=== PATIENT | female | born 1945 | race Caucasian/White ===

== ENCOUNTER → 2016-09-17 | Outpatient (CLI) | payer OTHER, BC ==
[~2016-09-17] MED LIST: ANSHCCR PR; CHOL400C7 PO; CLOT1CRE47; CLOTCRE33 TOP; DEXA0.5E3 PO; ELCCR115; LEVO112T4 PO; LVTUNK PO; PROP0.6D OPB; ZNTT/150 PO; [UNRECOGNIZED DRUG - CODE]; [UNRECOGNIZED DRUG - CODE]; [UNRECOGNIZED DRUG - CODE] OTB; [UNRECOGNIZED DRUG - CODE] PO; vit d PO
== END | disposition home or self-care (01) ==
LOC: C.PAPS 10:18
PROVIDERS: ATTEND Obstetrics & Gynecology
DX: Z01.419 Encounter for gynecological examination (general) (routine) without abnormal findings (principal)

== ENCOUNTER → 2016-11-12 | Outpatient (CLI) | payer OTHER, BC ==
[2016-11-12 11:03] LABS: BLOOD UREA NITROGEN 12 mg/dl (7-18); BUN/CREATININE RATIO 15.7 (10-20); CALCIUM 9.1 mg/dl (8.5-10.1); CARBON DIOXIDE 31 mmol/L (21-32); CHLORIDE 107 mmol/L (98-107); CREATININE 0.77 mg/dl (0.60-1.20); GLUCOSE 90 mg/dl (70-99); POTASSIUM 3.8 mmol/L (3.5-5.1); SODIUM 141 mmol/L (136-145)
[2016-11-12 11:14] LABS: CHOLESTEROL 171 mg/dl (0-200); CHOLESTEROL/HDL RATIO 2.8; HDL CHOLESTEROL 62 mg/dl; LDL CHOLESTEROL CALCULATED 96 mg/dl; THYROID STIMULATING HORMONE 0.526 uIu/ml (0.300-4.500); TRIGLYCERIDES 67 mg/dl (0-150); VERY LOW DENSITY LIPOPROT CALC 13 mg/dl
[2016-11-12 11:15] LABS: ESTIMATED AVERAGE GLUCOSE 114 mg/dl; HA1C FLAG Normal (Normal)
--- NOTE | 2016-11-17 12:48 | CODING QUERY MEDICAL NECESSITY ---
SUPPORTING DIAGNOSIS NEEDED A supporting diagnosis is required for the test/procedure performed on this patient in order for us to be reimbursed by the patient's insurance. Please provide a supporting diagnosis for the following test/procedure listed below next to the test name along with your signature. *If there is no additional diagnosis for this patient that would support the following test/procedure please document that below next to the test/procedure. Test(s)/Procedure(s) that require a supporting diagnosis: DOS 11/12 * Hba1c DIAGNOSIS: Provider Signature: Date: Thank you Joanna Tucker Health Information Management Once completed, please kindly fax back to [phone] For questions please call [phone]
== END | disposition home or self-care (01) ==
LOC: C.LAB 08:53
PROVIDERS: ATTEND Family Medicine
DX: E03.9 Hypothyroidism, unspecified (principal); E78.5 Hyperlipidemia, unspecified; R73.03 Prediabetes; E55.9 Vitamin D deficiency, unspecified

== ENCOUNTER → 2016-12-08 | Outpatient (CLI) | payer OTHER, BC ==
[2016-12-08 14:55] LABS: BASO % 0.3 %; BASO ABS # 0.01 K/uL (0-0.2); COMPLETE YES; HEMATOCRIT 41.9 % (37-47); LYMPH % 35.4 %; LYMPH ABS # 1.23 K/uL (1.2-3.4); MEAN CELL VOLUME 90.3 fL (80-100); MEAN CORPUSCULAR HEMOGLOBIN 30.2 pg (25-34); MEAN CORPUSCULAR HGB CONC 33.4 g/dl (32-36); MONO % 11.2 %; NEUT % 51.1 %; PLATELET COUNT 182 K/uL (130-400); RED BLOOD COUNT 4.64 M/uL (4.2-5.4); WHITE BLOOD COUNT 3.47 K/uL (4.8-10.8)
== END ==
LOC: C.LAB 12:20
PROVIDERS: ATTEND Dentist Oral and Maxillofacial Pathology
DX: R59.1 Generalized enlarged lymph nodes (principal)

== ENCOUNTER → 2017-01-12 | Day surgery (SDC) | payer OTHER, BC ==
[2016-12-14 14:08] VITALS: Ht 161.9 cm; Wt 72.7 kg
[~2017-01-12] VITALS: Ht 161.9 cm; Wt 72.7 kg
[~2017-01-12] MED LIST changes: -CLOT1CRE47; -ELCCR115; +GLYCOPYRROLATE INJ 0.2 MG/ML VIAL ONE; +LIDOCAINE HCL 2% 2 ML VIAL (20MG/ML) ONE; -LVTUNK PO; +PROPOFOL IV EMULSION 10 MG/ML 20 ML VIAL IV ONE; +SODIUM CHLORIDE 0.9% 500ML 500 ML IV ONE; -[UNRECOGNIZED DRUG - CODE]; -[UNRECOGNIZED DRUG - CODE]; -[UNRECOGNIZED DRUG - CODE] PO; -vit d PO
--- NOTE | 2017-01-12 09:03 | Endo History and Physical ---
History & Physical Date of Service: Jan 12, 2017. Chief Complaint: History of colon polyps Referring Physician: Dr. Funes History of Present Illness 71 yo CF who presents for colonoscopy secondary to history of colon polyps. Past Surgical History Hx Cardiac Surgery: No Hx Internal Defibrillator: No Hx Pacemaker: No Hx Abdominal Surgery: Yes (D&C) Hx of Implantable Prosthesis: No Hx Post-Op Nausea and Vomiting: Yes Hx Cancer Surgery: Yes (RT BREAST LUMPECTOMY WITH LYMPH NODE DISSECTION) Hx Thoracic Surgery: No Hx Orthopedic: No Hx Urinary Tract Surgery: No Family History None Social History Smoking Status: Former Smoker Hx Substance Use: No Hx Alcohol Use: No Allergies Coded Allergies: Iodinated Contrast Media (Verified Allergy, Severe, HIVES / SOB, 12/14/16) Iodine (Verified Allergy, Severe, HIVES/SOB, 12/14/16) Haitian Cheese (Verified Allergy, Mild, DIARRHEA, 12/14/16) Azithromycin (Verified Allergy, Mild, GASTRIC PROBLEMS, 12/14/16) NUTS (Verified Allergy, Mild, DIARRHEA, 12/14/16) Peanut (Verified Allergy, Mild, DIARRHEA, 12/14/16) Penicillins (Verified Allergy, Mild, HIVES, 12/14/16) KEFLEX IS OKAY TO TAKE PER PATIENT Shellfish (Verified Allergy, Mild, DIARRHEA, 12/14/16) Tetracyclines (Verified Allergy, Mild, HIVES, 12/14/16) Bacitracin (Verified Allergy, Unknown, RASH, 12/14/16) Bisphosphonates (Verified Allergy, Unknown, DIFFICULTY SWALLOWING, 12/14/16 ) Chocolate (Verified Allergy, Unknown, HIVES WITH SOME CHOCOLATE, 12/14/16) Cyproheptadine (Verified Allergy, Unknown, HYPER SENSITIVITY, 12/14/16) Erythromycin (Verified Allergy, Unknown, RASH, 12/14/16) Latex1 -Allergic Contact Dermititis (Verified Allergy, Unknown, HIVES, ) Levofloxacin (Verified Allergy, Unknown, HIVES, 12/14/16) Macrolides (Verified Allergy, Unknown, HIVES, 12/14/16) Neomycin (Verified Allergy, Unknown, RASH, 12/14/16) Polymyxin B (Verified Allergy, Unknown, RASH, 12/14/16) Proton Pump Inhibitors (Verified Allergy, Unknown, GI ISSUES, 12/14/16) [place] (Verified Allergy, Unknown, ITCHING, 12/14/16) Sulfa Drugs (Verified Allergy, Unknown, ITCHING, 12/14/16) Uncoded Allergies: ANTIBIOTICS (Allergy, Unknown, ., 12/14/16) NEEDS CLOTRIMAZOLE 10MG TO REDUCE SYMPTOMS OF ORAL LICHEN PLANUS SEEDS (Allergy, Unknown, SHORTNESS OF BREATH, 12/14/16) SPICES (Allergy, Unknown, SHORTNESS OF BREATH, 12/14/16) Current Medications Reported Home Medications Medications Dose Route/Sig Max Daily Dose Days Date Category Proctosol Hc (Hydrocortisone) 90 Appln/30 Gm Cr 1 Appln [place] BID PRN 12/14/16 Reported Soothe (Propylene Glycol-Glycerin) 1 Bull Bull 1 Drop OPB UD PRN 12/14/16 Reported Vitamin D 400 Iu (Cholecalciferol) 400 Unit Cap 2 Tabs PO QAM 12/14/16 Reported Cortane-B Aqueous (Vbalwuwrt-Om-Gszoxoewzknah Aqu) 1 Bull Bull 1 Drop OTB UD PRN 12/14/16 Reported Lotrisone (Clotrimazole W/ Betamethasone) 1 Cre Cre 1 Appln TOP WK 12/14/16 Reported Dexamethasone 0.5 Mg/5 Ml Elx 1 Tsp PO SWISH AND SPIT DAILY PRN 12/14/16 Reported Zantac (Ranitidine HCl) 150 Mg Tab 150 Mg PO BID-QID 12/14/16 Reported Levothyroxine Sodium 112 Mcg Tab 1 Tab PO HS 12/14/16 Reported Vital Signs Weight (Kilograms): 72.73 Height (Feet): 5 Height (Inches): 3.75 Physical Exam General Appearance: WD/WN, no apparent distress Respiratory/Chest: Auscultation: breath sounds normal Cardiovascular: Heart Auscultation: RRR Abdomen: Bowel Sounds: normal Inspection & Palpation: soft, non-distended, no tenderness, guarding & rebound Assessment and Plan Assessment: 71 yo CF who presents for colonoscopy secondary to history of colon polyps. Plan: Proceed with colonoscopy.
--- NOTE | 2017-01-12 10:00 | GI REPORT ---
Procedure Date: 01/12/2017 9:34 AM Procedure: Colonoscopy Indications: High risk colon cancer surveillance: Personal history of colonic polyps Medicines: Monitored Anesthesia Care Complications: No immediate complications. Estimated Blood Loss: Estimated blood loss: none. Procedure: Pre-Anesthesia Assessment: - Prior to the procedure, a History and Physical was performed, and patient medications and allergies were reviewed. The patient's tolerance of previous anesthesia was also reviewed. The risks and benefits of the procedure and the sedation options and risks were discussed with the patient. All questions were answered, and informed consent was obtained. Prior Anticoagulants: The patient has taken no previous anticoagulant or antiplatelet agents. ASA Grade Assessment: II - A patient with mild systemic disease. After reviewing the risks and benefits, the patient was deemed in satisfactory condition to undergo the procedure. After I obtained informed consent, the scope was passed under direct vision. Throughout the procedure, the patient's blood pressure, pulse, and oxygen saturations were monitored continuously. The scope was introduced through the anus and advanced to the terminal ileum. The colonoscopy was performed without difficulty. The patient tolerated the procedure well. The quality of the bowel preparation was good. The terminal ileum, ileocecal valve, appendiceal orifice, and rectum were photographed. Findings: Multiple small-mouthed diverticula were found in the sigmoid colon. Non-bleeding internal hemorrhoids were found during retroflexion. The hemorrhoids were mild. Impression: - Diverticulosis in the sigmoid colon. - Non-bleeding internal hemorrhoids. - No specimens collected. Recommendation: - Resume previous diet. - Continue present medications. - Repeat colonoscopy in 5 years for surveillance. - Return to primary care physician as previously scheduled. Femi Castillo DO 01/12/2017 9:59:33 AM This report has been signed electronically. Note Initiated On: 01/12/2017 9:34 AM I attest to the content of the Intraoperative Record and orders documented therein, exceptions below
--- NOTE | 2017-01-12 10:02 | Discharge Instructions ---
Endoscopy Patient Instructions Date / Procedure(s) Performed Jan 12, 2017. Colonoscopy Allergy Information Coded Allergies: Iodinated Contrast Media (Verified Allergy, Severe, HIVES / SOB, 12/14/16) Iodine (Verified Allergy, Severe, HIVES/SOB, 12/14/16) [place] Cheese (Verified Allergy, Mild, DIARRHEA, 12/14/16) Azithromycin (Verified Allergy, Mild, GASTRIC PROBLEMS, 12/14/16) NUTS (Verified Allergy, Mild, DIARRHEA, 12/14/16) Peanut (Verified Allergy, Mild, DIARRHEA, 12/14/16) Penicillins (Verified Allergy, Mild, HIVES, 12/14/16) KEFLEX IS OKAY TO TAKE PER PATIENT Shellfish (Verified Allergy, Mild, DIARRHEA, 12/14/16) Tetracyclines (Verified Allergy, Mild, HIVES, 12/14/16) Bacitracin (Verified Allergy, Unknown, RASH, 12/14/16) Bisphosphonates (Verified Allergy, Unknown, DIFFICULTY SWALLOWING, 12/14/16 ) Chocolate (Verified Allergy, Unknown, HIVES WITH SOME CHOCOLATE, 12/14/16) Cyproheptadine (Verified Allergy, Unknown, HYPER SENSITIVITY, 12/14/16) Erythromycin (Verified Allergy, Unknown, RASH, 12/14/16) Latex1 -Allergic Contact Dermititis (Verified Allergy, Unknown, HIVES, ) Levofloxacin (Verified Allergy, Unknown, HIVES, 12/14/16) Macrolides (Verified Allergy, Unknown, HIVES, 12/14/16) Neomycin (Verified Allergy, Unknown, RASH, 12/14/16) Polymyxin B (Verified Allergy, Unknown, RASH, 12/14/16) Proton Pump Inhibitors (Verified Allergy, Unknown, GI ISSUES, 12/14/16) [place] (Verified Allergy, Unknown, ITCHING, 12/14/16) Sulfa Drugs (Verified Allergy, Unknown, ITCHING, 12/14/16) Uncoded Allergies: ANTIBIOTICS (Allergy, Unknown, ., 12/14/16) NEEDS CLOTRIMAZOLE 10MG TO REDUCE SYMPTOMS OF ORAL LICHEN PLANUS SEEDS (Allergy, Unknown, SHORTNESS OF BREATH, 12/14/16) SPICES (Allergy, Unknown, SHORTNESS OF BREATH, 12/14/16) Discharge Date / Findings Jan 12, 2017. Diverticulosis Internal hemorrhoids Medication Instructions OK to resume all medications today as prescribed Reported Home Medications Medications Dose Route/Sig Max Daily Dose Days Date Category Proctosol Hc (Hydrocortisone) 90 Appln/30 Gm Cr 1 Appln [place] BID PRN 12/14/16 Reported Soothe (Propylene Glycol-Glycerin) 1 Bull Bull 1 Drop OPB UD PRN 12/14/16 Reported Vitamin D 400 Iu (Cholecalciferol) 400 Unit Cap 2 Tabs PO QAM 12/14/16 Reported Cortane-B Aqueous (Nuyfgvdmt-Tr-Rszqmpadfwvnb Aqu) 1 Bull Bull 1 Drop OTB UD PRN 12/14/16 Reported Lotrisone (Clotrimazole W/ Betamethasone) 1 Cre Cre 1 Appln TOP WK 12/14/16 Reported Dexamethasone 0.5 Mg/5 Ml Elx 1 Tsp PO SWISH AND SPIT DAILY PRN 12/14/16 Reported Zantac (Ranitidine HCl) 150 Mg Tab 150 Mg PO BID-QID 12/14/16 Reported Levothyroxine Sodium 112 Mcg Tab 1 Tab PO HS 12/14/16 Reported Provider Instructions Activity Restrictions - No exercising or heavy lifting for 24 hours. - Do not drink alcohol the day of the procedure. - Do not drive a car or operate machinery until the day after the procedure. - Do not make any important decisions or sign important papers in 24 hours after the procedure. Following Day: - Return to full activity which may include returning to work/school. Diet Start your diet with liquids and light foods (jello, soup, juice, toast). Then eat your usual diet if not nauseated. Treatment For Common After Affects For mild abdominal pain, bloating, or excessive gas: - Rest - Eat lightly - Lie on right side Follow-Up Information Follow-up with Dr. Frias as scheduled Anesthesia Information What You Should Know You have had a procedure that required some medicine to reduce anxiety and discomfort. This treatment is called moderate sedation. After receiving the treatment, you may be sleepy, but you will be able to breathe on your own. The effects of the treatment may last for several hours. Follow these instructions along with Activity/Diet recommendations noted above: * Do NOT do anything where dizziness or clumsiness would be dangerous. * Rest quietly at home today, then you can be up and about tomorrow. * Have a responsible person stay with you the rest of today. * You may have had an I.V. today. If so, you may take the dressing off later today. Recommendations Call your doctor if: * Trouble breathing * Continuous vomiting for more than 24 hours * Temperature above 101 degrees * Severe abdominal pain or bloating * Pain not relieved by pain medicine ordered * There is increased drainage or redness from any incision * A large amount of rectal bleeding greater than 2-3 tablespoons. (If you had a polyp/s removed or have hemorrhoids, a small amount of blood - from the rectum is to be expected.) * You have any unanswered questions or concerns. IN THE EVENT OF A SERIOUS EMERGENCY, GO TO THE NEAREST EMERGENCY ROOM Your discharge instructions were prepared by provider Femi Castillo. Patient Instructions Signature Page Sally Murphy Patient (or Guardian) Signature/Date: I have read and understand the instructions given to me by my caregivers. Caregiver/RN/Doctor Signature/Date: The above-named patient and/or guardian has received patient instructions on this date. + Original Patient Signature Page (only) stays with chart. Please make copy for patient.
--- NOTE | 2017-01-12 10:26 | Anesthesiology Progress Note ---
Anesthesia Post Op Note Date & Time Jan 12, 2017 at 10:25 Vital Signs Pain Intensity: 0 Vital Signs Past 12 Hours Date Time Temp Pulse Resp B/P (MAP) Pulse Ox O2 Delivery O2 Flow Rate FiO2 01/12/17 10:17 84 16 159/100 (119) 99 Room Air 01/12/17 10:06 165/99 (121) 01/12/17 10:03 92 16 160/106 (124) 99 Room Air 01/12/17 09:06 37.4 85 18 164/96 (118) 100 Room Air Notes Mental Status: alert / awake / arousable, participated in evaluation Pt Amnestic to Procedure: Yes Nausea / Vomiting: adequately controlled Pain: adequately controlled Airway Patency, RR, SpO2: stable & adequate BP & HR: stable & adequate Hydration State: stable & adequate Anesthetic Complications: no major complications apparent
[2017-01-12 10:36] VITALS: BP 167/96; PULSE 82; O2SAT 99
== END | disposition home or self-care (01) ==
LOC: C.GI 08:35
PROVIDERS: ATTEND Internal Medicine
DX: Z12.11 Encounter for screening for malignant neoplasm of colon (principal); Z86.010 Personal history of colon polyps; K57.30 Diverticulosis of large intestine without perforation or abscess without bleeding; K64.8 Other hemorrhoids; Z79.899 Other long term (current) drug therapy

== ENCOUNTER → 2017-03-01 | Outpatient (CLI) | payer OTHER, BC ==
[~2017-03-01] MED LIST changes: -GLYCOPYRROLATE INJ 0.2 MG/ML VIAL ONE; -LIDOCAINE HCL 2% 2 ML VIAL (20MG/ML) ONE; -PROPOFOL IV EMULSION 10 MG/ML 20 ML VIAL IV ONE; -SODIUM CHLORIDE 0.9% 500ML 500 ML IV ONE
--- NOTE | 2017-03-01 13:56 | MAMMOGRAPHY REPORT ---
BILATERAL DIGITAL DIAGNOSTIC MAMMOGRAM TOMOSYNTHESIS WITH CAD: 03/01/2017 CLINICAL HISTORY: Asymptomatic. Personal history of breast cancer. TECHNIQUE: Breast tomosynthesis in addition to standard 2D mammography was performed. Current study was also evaluated with a Computer Aided Detection (CAD) system. COMPARISON: Comparison is made to exams dated: 02/26/2016 mammogram, 02/21/2015 mammogram, 02/20/2014 ma mmogram, 02/20/2014 ultrasound, 02/19/2013 mammogram, and 02/17/2012 mammogram - [facility] enter. BREAST COMPOSITION: There are scattered areas of fibroglandular density in both breasts. FINDINGS: A linear scar marker overlies the 12:00 right breast. There is expected architectural dist ortion and a coarse dystrophic calcification in the 12:00 posterior right breast, at the site of prio r lumpectomy. There are a few scattered benign rim calcifications and minimal vascular calcification in the breasts. No new suspicious mass, architectural distortion or cluster of microcalcifications is seen. IMPRESSION: ACR BI-RADS CATEGORY 2: BENIGN Stable bilateral mammogram, without mammographic evidence of malignancy. Bilateral mammography is ag ain recommended in one year, with remaining a diagnostic patient in case any additional mammographic views and/or ultrasound are needed, given the personal history of right breast cancer. The patient h as been verbally notified of the results. Approximately 10% of breast cancers are not detected with mammography. A negative mammographic report should not delay biopsy if a clinically suggestive mass is present. Otilia Doll M.D. ay/:03/01/2017 11:02:45 Juvenile Justice Officer: Kathleen BLAND([place])([place]), [facility] letter sent: Normal 1/2 BI-RADS Code: ACR BI-RADS Category 2: Benign
== END | disposition home or self-care (01) ==
LOC: C.MAMM 10:10
PROVIDERS: ATTEND Obstetrics & Gynecology
DX: Z12.31 Encounter for screening mammogram for malignant neoplasm of breast (principal); Z85.3 Personal history of malignant neoplasm of breast

== ENCOUNTER → 2017-05-13 | Outpatient (CLI) | payer OTHER, BC ==
[2017-05-13 10:16] LABS: BASO % 0.6 %; BASO ABS # 0.02 K/uL (0-0.2); COMPLETE YES; EOS % 2.8 %; HEMATOCRIT 43.6 % (37-47); IG% 0.3 %; LYMPH ABS # 1.26 K/uL (1.2-3.4); MEAN CELL VOLUME 89.9 fL (80-100); MEAN CORPUSCULAR HEMOGLOBIN 30.1 pg (25-34); MEAN CORPUSCULAR HGB CONC 33.5 g/dl (32-36); MEAN PLATELET VOLUME 11.4 fL (7.4-10.4); MONO % 8.9 %; NEUT % 52.4 %; PLATELET COUNT 185 K/uL (130-400); RED BLOOD COUNT 4.85 M/uL (4.2-5.4)
[2017-05-13 10:47] LABS: BLOOD UREA NITROGEN 16 mg/dl (7-18); BUN/CREATININE RATIO 21.8 (10-20); CALCIUM 9.2 mg/dl (8.5-10.1); CARBON DIOXIDE 29 mmol/L (21-32); CHLORIDE 106 mmol/L (98-107); CREATININE 0.73 mg/dl (0.60-1.20); GLUCOSE 88 mg/dl (70-99); POTASSIUM 4.4 mmol/L (3.5-5.1); SODIUM 140 mmol/L (136-145)
[2017-05-13 11:00] LABS: CHOLESTEROL 184 mg/dl (0-200); CHOLESTEROL/HDL RATIO 3.1; HDL CHOLESTEROL 60 mg/dl; LDL CHOLESTEROL CALCULATED 107 mg/dl; TRIGLYCERIDES 87 mg/dl (0-150); VERY LOW DENSITY LIPOPROT CALC 17 mg/dl
[2017-05-13 11:17] LABS: ESTIMATED AVERAGE GLUCOSE 105 mg/dl; HA1C FLAG Normal (Normal)
== END | disposition home or self-care (01) ==
LOC: C.LAB 09:00
PROVIDERS: ATTEND Nurse Practitioner Adult Health
DX: E78.5 Hyperlipidemia, unspecified (principal); E03.9 Hypothyroidism, unspecified; R73.03 Prediabetes; E55.9 Vitamin D deficiency, unspecified

== ENCOUNTER → 2017-11-16 | Outpatient (CLI) | payer OTHER, BC ==
[~2017-11-16] MED LIST changes: +RANI150T85 PO; -ZNTT/150 PO
[2017-11-16 09:34] LABS: BASO % 0.3 %; BASO ABS # 0.01 K/uL (0-0.2); EOS % 2.6 %; HEMATOCRIT 43.3 % (37-47); HEMOGLOBIN 14.8 g/dL (12.0-16.0); LYMPH % 47.4 %; LYMPH ABS # 1.79 K/uL (1.2-3.4); MEAN CELL VOLUME 89.1 fL (80-100); MEAN CORPUSCULAR HEMOGLOBIN 30.5 pg (25-34); MEAN CORPUSCULAR HGB CONC 34.2 g/dl (32-36); MEAN PLATELET VOLUME 10.9 fL (7.4-10.4); MONO % 7.9 %; NEUT % 41.8 %; NEUT ABS # 1.58 K/uL (1.4-6.5); PLATELET COUNT 188 K/uL (130-400); RED CELL DISTRIBUTION WIDTH CV 13.3 % (11.5-14.5); RED CELL DISTRIBUTION WIDTH SD 43.8 fL (36.4-46.3); WHITE BLOOD COUNT 3.78 K/uL (4.8-10.8)
[2017-11-16 09:48] LABS: HEMOGLOBIN A1C 5.6 % (4.5-5.6)
[2017-11-16 10:05] LABS: BLOOD UREA NITROGEN 16 mg/dl (7-18); CALCIUM 9.1 mg/dl (8.5-10.1); CARBON DIOXIDE 27 mmol/L (21-32); CREATININE 0.77 mg/dl (0.60-1.20); GLUCOSE 89 mg/dl (70-99); POTASSIUM 3.5 mmol/L (3.5-5.1); SODIUM 140 mmol/L (136-145)
== END | disposition home or self-care (01) ==
LOC: C.LAB 08:23
PROVIDERS: ATTEND Family Medicine
DX: E03.9 Hypothyroidism, unspecified (principal); E78.5 Hyperlipidemia, unspecified; R73.03 Prediabetes

== ENCOUNTER → 2017-11-28 | Outpatient (CLI) | payer OTHER, BC ==
--- NOTE | 2017-11-28 10:15 | DIAGNOSTIC IMAGING REPORT ---
EXAMINATION: RENAL ULTRASOUND CLINICAL HISTORY: N28.1 Renal cyst, [id number] COMPARISON STUDY: 12/01/2015 FINDINGS: The right kidney measures 9.7 cm. The left kidney measures 9.7 cm. There is no evidence of hydronephrosis. 2 mid pole left renal masses were visualized, the largest of which measures 1 cm. There is mild irregular bladder wall thickening. Bilateral ureteral jets were visualized. IMPRESSION : 1. Persistent bladder wall thickening/trabeculation 2. Left renal cysts Electronically signed by: Donald Zhang M.D. 11/28/2017 10:14 AM Dictated Date/Time: 11/28/2017 10:12 AM
== END | disposition home or self-care (01) ==
LOC: C.ULTR 09:25
PROVIDERS: ATTEND Urology
DX: N28.1 Cyst of kidney, acquired (principal)

== ENCOUNTER → 2018-03-02 | Outpatient (CLI) | payer OTHER, BC ==
--- NOTE | 2018-03-02 15:13 | MAMMOGRAPHY REPORT ---
BILATERAL DIGITAL DIAGNOSTIC MAMMOGRAM TOMOSYNTHESIS WITH CAD: 03/02/2018 CLINICAL HISTORY: History of right breast cancer status post treatment. The patient reports no curren t complaints. TECHNIQUE: The study was acquired using full field digital technology and interpreted from soft copy. Breast tomosynthesis in addition to standard 2D mammography was performed. Current study was also ev aluated with a Computer Aided Detection (CAD) system. COMPARISON: Comparison is made to exams dated: 03/01/2017 mammogram, 02/26/2016 mammogram, 02/21/2015 velia mogram, 02/20/2014 mammogram, 02/20/2014 ultrasound, and 02/17/2012 mammogram - [facility] nter. BREAST COMPOSITION: There are scattered areas of fibroglandular density in both breasts. FINDINGS: No suspicious masses, calcifications, or areas of architectural distortion are noted in either breast . There has been no significant interval change compared to prior exams. There are stable postsurgic al changes in the right 12:00 breast from prior lumpectomy, including stable density, architectural d istortion, and coarse dystrophic calcifications at the lumpectomy bed. A linear scar marker overlies the right 12:00 breast. Other scattered bilateral benign-appearing calcifications are not significa ntly changed. IMPRESSION: ACR BI-RADS CATEGORY 2: BENIGN There is no mammographic evidence of malignancy in either breast. Recommend routine bilateral mammog derrick in 1 year; the patient would prefer to remain a diagnostic patient. The patient has been verbal ly notified of the results. Some breast cancers are not detected with mammography. A negative mammographic report should not jayne y biopsy if a clinically suggestive mass is present. Patricia Fregoso M.D. /:03/02/2018 10:34:11 Structural Steel Painter: Kathleen Altamirano, [facility] letter sent: Normal 1/2 BI-RADS Code: ACR BI-RADS Category 2: Benign
== END | disposition home or self-care (01) ==
LOC: C.MAMM 10:12
PROVIDERS: ATTEND Obstetrics & Gynecology
DX: Z12.31 Encounter for screening mammogram for malignant neoplasm of breast (principal)

== ENCOUNTER → 2018-03-06 | Outpatient (CLI) | payer OTHER, BC | END | disposition home or self-care (01) | LOC: C.LAB 13:13 | PROVIDERS: ATTEND Family Medicine | DX: E03.9 Hypothyroidism, unspecified (principal) ==